=== PATIENT | male | born 1985 | race African-American/Black ===

== ENCOUNTER 2016-09-22 22:51 | Emergency (ER) | payer MEDICARE ==
[2016-09-22 23:25] VITALS: BP 115/67; PULSE 72; TEMP 98; BMI 20.6
[2016-09-23] MEDS ORDERED: ACETAMINOPHEN WITH CODEINE 300MG/30MG TABLET PO ONE (02:25)
--- NOTE | 2016-09-23 02:28 | PDOC ---
History of Present Illness - General Chief Complaint: Pain Stated Complaint: RT ARM PAIN Time Seen by Provider: 09/23/16 00:22 - History of Present Illness Initial Comments: 09/23/16 02:28 CHIEF COMPLAINT: Arm pain HISTORY OF PRESENT ILLNESS: 30-year-old male with history of anxiety on Risperdal presents with arm pain status post phlebotomy draw last week. Patient reports that his arm is "paralyzed". Patient states he is very concerned that "my vein is dangling inside" and that the backbreaker severe damaged his veins with the blood draw. Patient states he went to his therapist today and "the nurse said she couldn't see anything on my arm but my therapist said that she could see something when I showed her." No recent travel or sick contacts. PAST MEDICAL HISTORY: Denies past medical history FAMILY HISTORY: Denies SOCIAL HISTORY: Denies tobacco, alcohol, illicit drug use. SURGICAL HISTORY: Denies ALLERGIES: No known drug allergies REVIEW OF SYSTEMS General/Constitutional: Denies fever or chills. Denies weakness, weight change. HEENT: Denies change in vision. Denies ear pain or discharge. Denies sore throat. Cardiovascular: Denies chest pain or shortness of breath. Respiratory: Denies cough, wheezing, or hemoptysis. Gastrointestinal: Denies nausea, vomiting, diarrhea or constipation. Denies rectal bleeding. Genitourinary: Denies dysuria, frequency, or change in urination. Musculoskeletal: Denies joint or muscle swelling or pain. Denies neck or back pain. Skin and breasts: Denies rash or easy bruising. Neurologic: Denies headache, vertigo, loss of consciousness, or loss of sensation. PHYSICAL EXAM General Appearance: Well-appearing, appropriately dressed. No apparent distress , no intoxication. HEENT: EOMI, PERRLA, normal ENT inspection, normal voice, TMs normal, pharynx normal. No conjunctival pallor. No photophobia, scleral icterus. Respiratory/Chest: Lungs CTAB. Cardiovascular: RRR. S1, S2. Gastrointestinal/Abdominal: Normal bowel sounds. Abdomen soft, non-distended. No tenderness or rebound tenderness. No organomegaly, pulsatile mass, guarding , hernia, hepatomegaly, splenomegaly. Lymphatic: No adenopathy, tenderness. Musculoskeletal/Extremities: Full ROM to R elbow, no swelling, tenderness, ecchymosis, erythema, warmth. Normal inspection. FROM of all extremities, normal capillary refill. Pelvis Stable. No CVA tenderness. No tenderness to extremities, pedal edema, swelling, erythema or deformity. Integumentary: Appropriate color, dry, warm. 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 Fully oriented, alert. Appropriate mood/affect. Motor strength 5/5. No appreciable EOM palsy, facial droop or sensory deficit. 09/23/16 05:32 Past History - Past Medical History Allergies/Adverse Reactions: Allergies Allergy/AdvReac Type Severity Reaction Status Date / Time No Known Allergies Allergy Verified 09/22/16 23:25 Home Medications: Ambulatory Orders Naproxen [Naprosyn -] 500 mg PO BID #14 tablet 02/06/15 Ibuprofen 600 mg PO TID PRN #21 tablet 09/23/16 - Psycho/Social/Smoking Cessation Hx Anxiety: No Suicidal Ideation: No Smoking History: Current some day smoker Have you smoked in the past 12 months: Yes Number of Cigarettes Smoked Daily: 2 Information on smoking cessation initiated: No Hx Alcohol Use: Yes (OCCASIONALLY) Drug/Substance Use Hx: No Substance Use Type: Alcohol *Physical Exam - Vital Signs Last Vital Signs Temp Pulse Resp BP Pulse Ox 98 F 72 16 115/67 99 09/22/16 23:24 09/22/16 23:24 09/22/16 23:24 09/22/16 23:24 09/22/16 23:24 ED Treatment Course - RADIOLOGY Radiology Studies Ordered: Category Date Time Status DUPLEX VASCUL US-1 ARM [US] Stat Ultrasound 09/23/16 01:04 Taken Medical Decision Making - Medical Decision Making 09/23/16 05:35 30-year-old male with history of anxiety on Risperdal presents with arm pain status post phlebotomy draw last week. -Doppler US R arm Patient requests pain medication. Tylenol with codeine one dose given per attending MD Weber. Rx for ibuprofen given. Patient states he wants Tylenol with codeine and continuously asks for something "stronger" than Tylenol or ibuprofen. Patient discharged to home with referral to pain management. *DC/Admit/Observation/Transfer Diagnosis at time of Disposition: Arm pain, right - Discharge Dispostion Disposition: HOME Condition at time of disposition: Stable Admit: No - Prescriptions Prescriptions: Ibuprofen 600 mg PO TID PRN #21 tablet PRN Reason: Pain - Referrals Referrals: Shanti Loja MD [Primary Care Provider] - Wilbert Guillermo MD [Staff Physician] - - Patient Instructions Printed Discharge Instructions: DI for Arm Pain
[2016-09-23] MEDS ORDERED: ACETAMINOPHEN WITH CODEINE 300MG/30MG TABLET ONE (02:51)
== END 2016-09-23 03:10 | disposition home or self-care (01) ==
LOC: JER 22:51
DX: T80.89XA Other complications following infusion, transfusion and therapeutic injection, initial encounter (principal); Y84.8 Other medical procedures as the cause of abnormal reaction of the patient, or of later complication, without mention of misadventure at the time of the procedure
CPT/HCPCS: 93971; 99282-25